=== PATIENT | male | born 1955 | race Caucasian/White ===

== ENCOUNTER 2019-11-17 13:01 | Observation (INO) | payer OTHER ==
--- OUTSIDE RECORDS SUMMARY | 2019-11-17 13:19 | XMS REPORT | Continuity of Care Document ---
:1955 Author Organization [facility] t Address [address] [place] [address] Care Team Providers Name Role Phone Unavailable Unavailable Unavailable Payers Payer Name Policy Type Policy Number Effective Date Expiration Date S ource Problems This patient has no known problems. Allergies, Adverse Reactions, Alerts Allergy Allergy Status Severity Reaction(s) Onset Inactive Treating Comm ents Source Name Type Date Date Clinician No Known DA Active U [facility] All[facility]ie 09-18 Landing s 00:00: [place] [address] [place] [address] Medications This patient has no known medications. Procedures This patient has no known procedures. Results Test Description Test Time Test Comments Results Result Comments Source - XR CHEST 1 V 2019-10-20 FAX: Varun 15:38:00 Brenda Mosqueda MD [phone] [place]: St: REG FAX: Jorge Lara [phone] Name: DONAVON ROBINS [facility] : 1955 Age/S: 63/M [address] [place] [address] Unit #: [id number] Loc: [place] [address] Phys: Mike Martinez MD Acct: [id number] Dis Date: Status: REG REF PHONE #: [phone] Exam Date: 10/20/2019 1504 FAX #: [phone] Reason: PORT A CATH PM EXAMS: CPT CODE: [id number] XR CHEST 1 V 30514 EXAM: XR CHEST 1 VIEW DATE: 10/20/2019 3:04 PM : 1955; Age: 63 years y/o Male INDICATION: PORT A CATH PM COMPARISON: None. TECHNIQUE: AP chest. IMPRESSION: Lines, tubes and hardware: Left subclavian chest port is seen with tip overlying the mid SVC. Heart, mediastinum and lungs: The heart size is normal for technique. The mediastinal contours are normal. Pulmonary vascularity is normal. The lungs are clear. SL: [id number] at 153 Reported and signed by: Tonja Greenwood D.O. CC: Brenda Mosqueda MD; Mike Martinez MD Technologist: RT Barbara(R) Trnscrd Date/Time/By: 10/20/2019 (9466) : By: [email or web address] Orig Print D/T: S: 10/20/2019 (9841) PAGE 1 Signed Report CREATININE W ESTIMATED GFR 2019-09-20 07:40:00 Test Item Value Reference Range Interpretation Comme nts BEDSIDE CREATININE (test code = CREATBED) 1.5 MG/DL 0.6-1.3 H GLOMERULAR FILTRATION RATE POC (test code = GFRBED) 51 ML/MIN ENTER BEDSIDE CREATININE RESULT: 1.53Serial Number: [id number] Name of User Performing Test: PAIGE- CT ABD PELVIS [id number] 11:12:00 Name: SUHASVenturaDONAVON [facility] : 1955 Age/S: 63 / M [address] [place] [address] Unit #: [id number] Loc: [place] [id number] Phys: Mike Martinez MD Acct: [id number] Dis Date: Status: REG CLI PHONE #: [phone] Exam Date: 09/19/2019 0808 FAX #: [phone] Reason: LOCALIZED SWELLING,MASS AND LUMP,UNSPE EXAMS: CPTCODE: [id number] CT ABD PELVIS W/CONT 32298 Clinical Ind ication: . LOCALIZED SWELLING,MASS AND LUMP,UNSPE. Rectal pain and swelling, DATE: 09/19/2019 7:10 AM : 1955; Age: 63 years y/o Male Comparison: None Technique: Multi-detector CT imaging of the chest, abdomen and pelvis is performed with intravenous contrast. Axial, coronal and sagittal reconstructions were obtained. IV Contrast: 100 mL Isovue Enteric Contrast: [address] Radiation Dose: DLP 329.9 mGy-cmCT imaging performed at this location utilizes radiation dose optimization techniques which include one or more of the following: -Automated exposure control -Adjustment of the mA and/or kV according to patient size -Use of iterative reconstruction technique FINDINGS: Lymph Nodes: There is no mediastinal or hilar lymphadenopathy. No axillary lymphadenopathy. Heart, pericardium and aorta: : The heart is normal in size. There are coronary artery calcifications. Ectatic ascending thoracic aorta measuring 3.8 cm Atheromatous changes are present in the aorta.. LUNGS: 8 mm ill- defined noncalcified nodule in the right upper lobe on image 23 of series 3. Moderate pulmonary emphysema. Few noncalcified nodular opacity in the left lung base measuring up to 6 mm. No consolidation. No pleural effusion. Liver: Normal. Gallbladder: No calcified stones or wall thickening. Adrenals: Normal. Kidneys and ureters: Tiny right kidney lower pole low-attenuation focus, which is too small to accurately characterize. Exophytic left kidney upper pole 2.3 cm low-attenuation lesion. 2 mm nonobstructing right kidney lower pole stone. PAGE 1 Signed Report (CONTINUED) Name: DONAVON ROBINS [facility] : 1955 Age/S: 63 / M [address] [place] [address] Unit #: [id number] Loc: [place] [address] Phys: Mike Martinez MD Acct: [id number] Dis Date: Status: REG CLI PHONE #: [phone] Exam Date: 09/19/2019 0808 FAX #: [phone] Reason: LOCALIZED SWELLING,MASS AND LUMP,UNSPE EXAMS: CPT CODE: [id number] CT ABD PELVIS W/CONT 45192 <Continued> Spleen: Normal. Pancreas: Normal. Visualized Gastrointestinal tract: Stomach is grossly normal. No bowel obstruction. Prior appendectomy. Left anal region ill-defined soft tissue density lesion is seen measuring 2.8 x 4 x 4 cm with adjacent skin thickening. Peritoneum, mesentery and retroperitoneum: Moderate atherosclerotic changes involving the abdominal aorta. Infrarenal ectatic abdominal aorta is seen measuring2.9 cm. No lymphadenopathy. No ascites. Reproductive organs: Prostate and seminal vesicles are unremarkable. Bladder: Decompressed or not fully distended. Soft tissues: Left groin few nodes are seen measuring up to 1.4 cm. Bones: Subacute fracture involving left anterolateral 4th and 5th ribs. Spine degenerative changes. 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 Left anal region ill-defined soft tissue density lesion measuring 2.8 x 4 x 4 cmwith adjacent skin thickening. Left groin lymphadenopathy is seen. Malignancy cannot be excluded. 2. Indeterminate exophytic left kidney upper pole 2.3 cm low-attenuation lesion. This may represent complex or complicated cyst. Renal ultrasound is recommended for further workup. 3. 8 mm ill-defined noncalcified nodule in the right upper lobe. As per guidelines, further workup is recommended. Consider follow-up CT at 3 months, PET/CT or tissue sampling. 4. Few noncalcified nodular opacity in the left lung base measuring up to 6 cm. This may represent inflammatory process. 5. Ectatic aorta with coronary artery disease. 6. Right nephrolithiasis. 7. Moderate pulmonary emphysema. Reference: Guidelines for Management of Incidental Pulmonary PAGE 2 Signed Report (CONTINUED) Name: DONAVON ROBINS [facility] : 1955 Age/S: 63 / M [address] [place] [address] Unit #: [id number] Loc: [place] [address] Phys: Mike Martinez MD Acct: [id number] Dis Date: Status: REG CLI PHONE #: [phone] Exam Date: FAX #: [phone] Reason: LOCALIZED SWELLING,MASS AND LUMP,UNSPE EXAMS: CPT CODE: [id number] CT ABD PELVISW/CONT 68193 <Continued> Nodules Detected on CT Im ages: From the [employer] 2017. FOR INTERNAL CODING PURPOSES ONLY RESULT CODE: NOD SL: [id number] at 1112 Reported and signed by: Tonja Greenwood D.O. CC: Brenda Mosqueda MD; Mike Martinez MD Technologist:Madai Ramírez, RT(R)(CT) CTDI: DLP: Trnscb Date/Time: 09/19/2019 (111) [email or web address] Orig Print D/T: S: 09/19/2019 (1116) PAGE 3 Signed Report- CT CHEST W/[id number] 11:12:00 Name: DONAVON ROBINS [facility] : 1955 Age/S: 63 / M [address] [place] [address] Unit #: [id number] Loc: [id number] Phys: Mike Martinez MD Acct: [id number] Dis Date: Status: REG CLI PHONE #: [phone] Exam Date: 09/19/2019 0808 FAX #: [phone] Reason: LOCALIZED SWELLING,MASS AND LUMP,UNSPE EXAMS: CPTCODE: [id number] CT CHEST W/CONTRAST 81165 Clinical Ind ication: . LOCALIZED SWELLING,MASS AND LUMP,UNSPE. Rectal pain and swelling, DATE: 09/19/2019 7:10 AM : 1955; Age: 63 years y/o Male Comparison: None Technique: Multi-detector CT imaging of the chest, abdomen and pelvis is performed with intravenous contrast. Axial, coronal and sagittal reconstructions were obtained. IV Contrast: 100 mL Isovue Enteric Contrast: [address] Radiation Dose: DLP 329.9 mGy-cmCT imaging performed at this location utilizes radiation dose optimization techniques which include one or more of the following: -Automated exposure control -Adjustment of the mA and/or kV according to patient size -Use of iterative reconstruction technique FINDINGS: Lymph Nodes: There is no mediastinal or hilar lymphadenopathy. No axillary lymphadenopathy. Heart, pericardium and aorta: : The heart is normal in size. There are coronary artery calcifications. Ectatic ascending thoracic aorta measuring 3.8 cm Atheromatous changes are present in the aorta.. LUNGS: 8 mm ill- defined noncalcified nodule in the right upper lobe on image 23 of series 3. Moderate pulmonary emphysema. Few noncalcified nodular opacity in the left lung base measuring up to 6 mm. No consolidation. No pleural effusion. Liver: Normal. Gallbladder: No calcified stones or wall thickening. Adrenals: Normal. Kidneys and ureters: Tiny right kidney lower pole low-attenuation focus, which is too small to accurately characterize. Exophytic left kidney upper pole 2.3 cm low-attenuation lesion. 2 mm nonobstructing right kidney lower pole stone. PAGE 1 Signed Report (CONTINUED) Name: DONAVON ROBINS [facility] : 1955 Age/S: 63 / M [address] [place] [address] Blvd Unit #: [id number] Loc: [place] [address] Phys: Mike Martinez MD Acct: [id number] Dis Date: Status: REG CLI PHONE #: [phone] Exam Date: 09/19/2019 0808 FAX #: [phone] Reason: LOCALIZED SWELLING,MASS AND LUMP,UNSPE EXAMS: CPT CODE: [id number] CT CHEST W/CONTRAST 26468 <Continued> Spleen: Normal. Pancreas: Normal. Visualized Gastrointestinal tract: Stomach is grossly normal. No bowel obstruction. Prior appendectomy. Left anal region ill-defined soft tissue density lesion is seen measuring 2.8 x 4 x 4 cm with adjacent skin thickening. Peritoneum, mesentery and retroperitoneum: Moderate atherosclerotic changes involving the abdominal aorta. Infrarenal ectatic abdominal aorta is seen measuring2.9 cm. No lymphadenopathy. No ascites. Reproductive organs: Prostate and seminal vesicles are unremarkable. Bladder: Decompressed or not fully distended. Soft tissues: Left groin few nodes are seen measuring up to 1.4 cm. Bones: Subacute fracture involving left anterolateral 4th and 5th ribs. Spine degenerative changes. 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 Left anal region ill-defined soft tissue density lesion measuring 2.8 x 4 x 4 cmwith adjacent skin thickening. Left groin lymphadenopathy is seen. Malignancy cannot be excluded. 2. Indeterminate exophytic left kidney upper pole 2.3 cm low-attenuation lesion. This may represent complex or complicated cyst. Renal ultrasound is recommended for further workup. 3. 8 mm ill-defined noncalcified nodule in the right upper lobe. As per guidelines, further workup is recommended. Consider follow-up CT at 3 months, PET/CT or tissue sampling. 4. Few noncalcified nodular opacity in the left lung base measuring up to 6 cm. This may represent inflammatory process. 5. Ectatic aorta with coronary artery disease. 6. Right nephrolithiasis. 7. Moderate pulmonary emphysema. 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 CC: Brenda Mosqueda MD; Mike Martinez MD Technologist:Madai Krnavek, RT(R)(CT) CTDI: DLP: Trnscb Date/Time: 09/19/2019 (7520) [email or web address] Orig Print D/T: S: 09/19/2019 (8905) PAGE 3 Signed Report
[2019-11-17] MEDS ORDERED: ONDANSETRON 4 MG/2 ML VIAL ONE (13:23)
[2019-11-17] MEDS ORDERED: MORPHINE 4 MG/ML SYR ONE (13:23)
[2019-11-17] MEDS ORDERED: LIDOCAINE 1% 20 ML MDV ONE (13:30)
[2019-11-17] MEDS ORDERED: MIDAZOLAM HCL 2 MG/2 ML INJ ONE ×2 (13:30→14:17)
[2019-11-17] MEDS ORDERED: HEPA 1000U/500MLS 1,000 UNIT/500 ML BAG IV ONE (13:30)
[2019-11-17] MEDS ORDERED: FENTANYL CITR 100 MCG/2 ML ONE (13:31)
[2019-11-17] MEDS ORDERED: ATROPINE SULF 1 MG/10 ML SYR IV ONE ×2 (13:31→14:32)
[2019-11-17] MEDS ORDERED: NA CHLORIDE 0.9% 50 ML ONE (13:31)
[2019-11-17] MEDS ORDERED: NA CHLORIDE 0.9% 500 ML ONE (13:31)
[2019-11-17 13:37] LABS: Absolute Lymphocytes (CBC) 0.9 K/uL (0.7-4.9); Basophils % 0.9 % (0-1.3); Hematocrit 31.5 % (39.6-49.0); Lymphocytes % 12.6 % (15.3-44.8); MPV 7.5 fL (7.6-11.3); RBC Red Blood Cell Count 3.41 M/uL (4.33-5.43)
[2019-11-17 13:38] LABS: Protime INR 1.07
[2019-11-17 13:56] LABS: ALT/SGPT 16 U/L (12-78); AST/SGOT 15 U/L (15-37); Albumin 3.3 g/dL (3.4-5.0); Alkaline Phosphatase 51 U/L (45-117); BUN Blood Urea Nitrogen 13 mg/dL (7-18); Bicarbonate 26 mmol/L (21-32); Bilirubin Direct < 0.1 mg/dL (0-0.2); Bilirubin Total 0.2 mg/dL (0.2-1.0); Glucose Level 146 mg/dL (74-106); Magnesium 2.2 mg/dL (1.8-2.4); NT PRO-BNP 890 pg/mL (<125); Potassium 3.6 mmol/L (3.5-5.1); Protein, Total 7.2 g/dL (6.4-8.2); Sodium Level 142 mmol/L (136-145); Troponin (Emerg Dept Use Only) 0.12 ng/mL (0.0-0.045)
--- NOTE | 2019-11-17 13:59 | P.HP ---
Certification for Inpatient Patient admitted to: Inpatient With expected LOS: >2 Midnights Patient will require the following post-hospital care: None Practitioner: I am a practitioner with admitting privileges, knowledge of patient current condition, hospital course, and medical plan of care. Services: Services provided to patient in accordance with Admission requirements found in Title 42 Section 412.3 of the Code of Federal Regulations Patient History Date of Service: 11/17/19 Reason for admission: ST-elevation myocardial infarction History of Present Illness: 64-year-old male with history of HIV, hypertension, hyperlipidemia, stage IV colorectal cancer presents emergency department with severe chest pain that began after receiving radiation treatment. Patient is on chemo and radiation last chemo was approximately 2 weeks ago. Last radiation was today. Patient reports severe substernal chest pain. Upon arrival to the emergency department patient received EKG which showed ST elevation in leads 2, 3 and AV L with reciprocal changes. Cardiology was immediately called and patient was prepped for heart catheterization. Patient early on his way to cardiac cath lab manager. Called to discuss plan of care. Will re-evaluate patient after heart catheterization. - Past Medical/Surgical History -: Hypertension -: Hyperlipidemia -: Stage IV colorectal cancer -: HIV -: Appendectomy -: Tonsillectomy Psychosocial/ Personal History: Patient lives at home with his - Family History Family History: Reviewed- Non-Contributory - Social History Smoking Status: Current every day smoker Smoking therapy provided: Yes Alcohol use: No CD- Drugs: No Caffeine use: No Place of Residence: Home Review of Systems 10-point ROS is otherwise unremarkable Cardiovascular: Chest Pain Physical Examination - Physical Exam General: Alert, In no apparent distress, Oriented x3 HEENT: Atraumatic, Normocephalic, Mucous membr. moist/pink Neck: Supple Respiratory: Clear to auscultation bilaterally, Normal air movement Cardiovascular: No edema, Regular rate/rhythm Capillary refill: <2 Seconds Gastrointestinal: Normal bowel sounds, Soft and benign Musculoskeletal: No erythema, No tenderness Integumentary: No tenderness/swelling, No erythema Neurological: Normal gait, Normal speech, Normal affect - Studies Laboratory Data (last 24 hrs) 11/17/19 13:12: PT 12.6 H, INR 1.07 11/17/19 13:12: WBC 7.1, Hgb 10.7 L, Hct 31.5 L, Plt Count 534 H Assessment and Plan - Plan Assessment ST-elevation myocardial infarction-suspect inferior Hypertension Hyperlipidemia HIV Stage IV colorectal cancer Plan ST-elevation myocardial infarction-suspect inferior: Patient currently in cardiac cath lab manager, where recommendations from cardiology. Anticipate patient will be placed on Plavix, aspirin, statin, beta-ritesh. Will evaluate patient's home medications when he returns from catheterization lab. Discussed with the extensively. Will await recommendations from cardiology on use of DVT prophylaxis/Lovenox. Hypertension: Obtain and continue patient's home medications, place p.r.n. medications as needed. Hyperlipidemia: Obtain and continue patient's home medications. HIV: Obtain and continue patient's home medications. Patient has had HIV since 1998. This remained stable. Stage IV colorectal cancer: Patient sees multiple specialists including onc ologist and radiologist in [facility]. Will collaborate with them as needed. Patient is currently getting daily radiation treatment. Chemotherapy was held due to patient's low white blood cell count. Patient's white blood cell currently is 7.1. Platelets also were low but now are improved. Will continue to monitor patient's blood counts closely. Await further recommendations from cardiology to determine further plan of care. Discharge Plan: Home - Advance Directives Does patient have a Living Will: No Does patient have a Durable POA for Healthcare: No - Code Status/Comfort Care Code Status Assessed: Yes Critical Care: No Time Spent Managing Pts Care (In Minutes): 55
[2019-11-17] MEDS ORDERED: D5W 250 ML IV ONE (14:07)
[2019-11-17] MEDS ORDERED: NITROPRUSSIDE 50 MG VIAL IV ONE (14:07)
[2019-11-17] MEDS ORDERED: NITROGLYCERIN 0.4 MG/TAB SL ONE (14:07)
--- NOTE | 2019-11-17 14:36 | EDPHYS ---
Physician Documentation [facility] Name: Carlos Viera Jr Age: 64 yrs Sex: Male : 1955 Arrival Date: 11/17/2019 Time: 13:08 Bed 7 Private MD: ED Physician Joe White HPI: 11/16 14:23 This 64 yrs old Male presents to ER via EMS with complaints of Chest Pain. kdr 14:23 The patient or guardian reports chest pain that is located primarily in the substernal kdr area, anterior chest wall, left. Onset: suddenly, just prior to arrival, at 12:00. The pain does not radiate. Associated signs and symptoms: Pertinent positives: diaphoresis, nausea, shortness of breath. The chest pain is described as aching, a heaviness, a pressure, squeezing. Duration: The patient or guardian reports a single episode, that is still ongoing, and unchanged. Modifying factors: The symptoms are alleviated by nothing. the symptoms are aggravated by nothing. Severity of pain: At its worst the pain was moderate severe a 9 / 10 in the emergency department the pain is a 8 / 10. The patient has not experienced similar symptoms in the past. The patient has not recently seen a physician. The patient had radiation this morning and went home to rest. Shortly after arrival home at Noon, he began to have chest pain. Historical: - Allergies: 13:11 PENICILLINS; hb - PMHx: 13:11 Colorectal CA; HIV; hb - Immunization history:: Adult Immunizations up to date. - Social history:: Smoking status: Patient reports the use of cigarette tobacco products, smokes one pack cigarettes per day. ROS: 14:23 Constitutional: Negative for fever, chills, and weight loss, Eyes: Negative for injury, kdr pain, redness, and discharge, ENT: Negative for injury, pain, and discharge, Neck: Negative for injury, pain, and swelling, Respiratory: Negative for shortness of breath, cough, wheezing, and pleuritic chest pain, Abdomen/GI: Negative for abdominal pain, nausea, vomiting, diarrhea, and constipation, Back: Negative for injury and pain, : Negative for injury, bleeding, discharge, and swelling, MS/Extremity: Negative for injury and deformity, Skin: Negative for injury, rash, and discoloration, Neuro: Negative for headache, weakness, numbness, tingling, and seizure activity. Psych: Negative for depression, anxiety, suicide ideation, homicidal ideation, and hallucinations, Allergy/Immunology: Negative for hives, rash, and allergies, Endocrine: Negative for neck swelling, polydipsia, polyuria, polyphagia, and marked weight changes, Hematologic/Lymphatic: Negative for swollen nodes, abnormal bleeding, and unusual bruising. 14:23 Cardiovascular: Positive for chest pain, Negative for edema, orthopnea, palpitations, paroxysmal nocturnal dyspnea. 14:23 Respiratory: Positive for shortness of breath, at rest. 14:23 Skin: Positive for diaphoresis. Exam: 14:23 Constitutional: This is a well developed, well nourished patient who is awake, alert, kdr and in no acute distress. Head/Face: Normocephalic, atraumatic. Eyes: Pupils equal round and reactive to light, extra-ocular motions intact. Lids and lashes normal. Conjunctiva and sclera are non-icteric and not injected. Cornea within normal limits. Periorbital areas with no swelling, redness, or edema. Neck: Trachea midline, no thyromegaly or masses palpated, and no cervical lymphadenopathy. Supple, full range of motion without nuchal rigidity, or vertebral point tenderness. No Meningismus. Chest/axilla: Normal chest wall appearance and motion. Nontender with no deformity. No lesions are appreciated. Cardiovascular: Regular rate and rhythm with a normal S1 and S2. No gallops, murmurs, or rubs. Normal PMI, no JVD. No pulse deficits. Respiratory: Lungs have equal breath sounds bilaterally, clear to auscultation and percussion. No rales, rhonchi or wheezes noted. No increased work of breathing, no retractions or nasal flaring. Abdomen/GI: Soft, non-tender, with normal bowel sounds. No distension or tympany. No guarding or rebound. No evidence of tenderness throughout. Back: No spinal tenderness. No costovertebral tenderness. Full range of motion. Skin: Warm, dry with normal turgor. Normal color with no rashes, no lesions, and no evidence of cellulitis. MS/ Extremity: Pulses equal, no cyanosis. Neurovascular intact. Full, normal range of motion. Neuro: Awake and alert, GCS 15, oriented to person, place, time, and situation. Cranial nerves II-XII grossly intact. Motor strength 5/5 in all extremities. Sensory grossly intact. Cerebellar exam normal. Normal gait. Psych: Awake, alert, with orientation to person, place and time. Behavior, mood, and affect are within normal limits. 18:43 ECG was reviewed by the Attending Physician. kdr Vital Signs: 13:08 Pulse 72; Resp 18; Temp 97.9; Pulse Ox 100% on R/A; Pain 8/10; hb 13:14 BP 137 / 79; Pulse 71; Resp 12; Temp 97.7; Pulse Ox 100% on R/A; Weight 64.41 kg; dh3 Height 5 ft. 7 in. (170.18 cm); Pain 8/10; 16:15 BP 100 / 60; Pulse 61; Resp 15; Pulse Ox 100% on R/A; hb 13:14 Body Mass Index 22.24 (64.41 kg, 170.18 cm) dh3 MDM: 14:23 Data reviewed: vital signs, nurses notes, lab test result(s), EKG, radiologic studies. kdr Counseling: I had a detailed discussion with the patient and/or guardian regarding: the historical points, exam findings, and any diagnostic results supporting the discharge/admit diagnosis, lab results, the need for further work-up and treatment in the hospital. 14:35 Patient medically screened. kdr 11/16 13:17 Order name: Basic Metabolic Panel hb 11/16 13:17 Order name: CBC with Diff hb 11/16 13:17 Order name: LFT's hb 11/16 13:17 Order name: Magnesium hb 11/16 13:17 Order name: NT PRO-BNP hb 11/16 13:17 Order name: PT-INR hb 11/16 13:17 Order name: Troponin (emerg Dept Use Only) hb 11/16 13:38 Order name: CBC with Automated Diff EDMS 11/16 13:39 Order name: Protime (+INR); Complete Time: 13:54 EDMS 11/16 13:56 Order name: Basic Metabolic Panel EDMS 11/16 13:56 Order name: Liver (Hepatic) Function EDMS 11/16 13:56 Order name: Troponin (Emerg Dept Use Only) EDMS 11/16 13:56 Order name: NT PRO-BNP EDMS 11/16 13:56 Order name: Magnesium EDMA 11/16 13:17 Order name: XRAY Chest (1 view) hb 11/16 13:17 Order name: EKG; Complete Time: 13:18 hb 11/16 13:17 Order name: Cardiac monitoring; Complete Time: 13:19 hb 11/16 13:17 Order name: EKG - Nurse/Tech; Complete Time: 13:19 hb 11/16 13:17 Order name: IV Saline Lock; Complete Time: 13:19 hb 11/16 13:17 Order name: Labs collected and sent; Complete Time: 13:21 hb 11/16 16:52 Order name: Activated Clotting Time-LR EDMA 11/16 16:52 Order name: Activated Clotting Time-LR EDMA 11/16 17:58 Order name: CBC with Automated Diff EDMA 11/16 18:12 Order name: Creatine Phosphokinase EDMA 11/16 18:12 Order name: CKMB Creatine Kinase MB EDMA 11/16 18:12 Order name: Troponin I EDMA 11/16 18:12 Order name: T4 Free EDMA 11/16 18:12 Order name: Thyroid Stimulating Hormone EDMA 11/16 13:17 Order name: O2 Per Protocol; Complete Time: 13:22 hb 11/16 13:17 Order name: O2 Sat Monitoring; Complete Time: 13:22 hb EC:43 Rate is 70 beats/min. Rhythm is regular, Sinus Rhythm with No ectopy. QRS [place] is kdr Normal. [place] interval is normal. Clinical impression: Acute [place]. Administered Medications: 13:17 Drug: morphine 4 mg Route: IVP; Site: right antecubital; hb 13:48 Follow up: Response: No adverse reaction hb 13:18 Drug: Zofran (Ondansetron) 4 mg Route: IVP; Site: right antecubital; hb 13:48 Follow up: Response: No adverse reaction hb Disposition: 11/17/19 14:35 Hospitalization ordered by Prince Nita for Inpatient Admission. Preliminary diagnosis is Acute [place]. - Bed requested for [facility] ER HOLD. - Status is Inpatient Admission. ea - Condition is Serious. - Problem is new. - Symptoms have improved. Signatures: Dispatcher [employer] EDMA Joe White MD MD kdr Williams, Irene, RN RN iw Attema, Lee, FNP-C FNP-Cla1 Radha Rich, RN RN hb Nancy Leone RN RN Irma Amezcua Corrections: (The following items were deleted from the chart) 14:37 14:35 Hospitalization Ordered by Prince Nita READ for Inpatient Admission. Preliminary iw diagnosis is Acute [place]. Bed requested for Curing Oven Tender. Status is Inpatient Admission. Condition is Serious. Problem is new. Symptoms have improved. kdr 16:02 14:37 11/17/2019 14:35 Hospitalization Ordered by Prince Nita READ for Inpatient eb Admission. Preliminary diagnosis is Acute [place]. Bed requested for C[facility] Oven Tender. Status is Inpatient Admission. Condition is Serious. Problem is new. Symptoms have improved. iw 19:53 16:02 11/17/2019 14:35 Hospitalization Ordered by Prince Nita READ for Inpatient ea Admission. Preliminary diagnosis is Acute [place]. Bed requested for [facility] ER HOLD. Status is Inpatient Admission. Condition is Serious. Problem is new. Symptoms have improved. eb
--- NOTE | 2019-11-17 14:36 | ER ---
Nurse's Notes [facility] Name: Carlos Viera Jr Age: 64 yrs Sex: Male : 1955 Arrival Date: 11/17/2019 Time: 13:08 Bed 7 Private MD: Diagnosis: Acute [place] Presentation: 11/16 13:08 Chief complaint: EMS states: Sudden onset substernal chest pain while driving home from radiation therapy today. Nitro x 2, ASA 324mg, Fentanyl 50 mcg, and LR 200 ml administered MACHINE HEEL SEAT FITTER. 20g LAC. Coronavirus screen: At this time, the client does not indicate any symptoms associated with coronavirus-19. Ebola Screen: No symptoms or risks identified at this time. Initial Sepsis Screen: Does the patient meet any 2 criteria? No. Patient's initial sepsis screen is negative. Does the patient have a suspected source of infection? No. Patient's initial sepsis screen is negative. Risk Assessment: Do you want to hurt yourself or someone else? Patient reports no desire to harm self or others. Onset of symptoms was November 17, 2019. 13:08 Method Of Arrival: EMS: [facility] 13:08 Acuity: TRINITY 2 hb 13:17 Acuity: TRINITY 1 hb Triage Assessment: 13:10 General: Appears in no apparent distress. Behavior is calm, cooperative. Pain: Pain hb currently is 8 out of 10 on a pain scale. EENT: No signs and/or symptoms were reported regarding the EENT system. Neuro: Level of Consciousness is awake, alert, obeys commands, Oriented to person, place, time, situation. Cardiovascular: Patient's skin is warm and dry. Respiratory: Airway is patent Respiratory effort is even, unlabored, Respiratory pattern is regular, symmetrical. GI: No signs and/or symptoms were reported involving the gastrointestinal system. : No signs and/or symptoms were reported regarding the genitourinary system. Derm: Skin is pink, warm \T\ dry. Musculoskeletal: No signs and/or symptoms reported regarding the musculoskeletal system. Historical: - Allergies: 13:11 PENICILLINS; hb - PMHx: 13:11 Colorectal CA; HIV; hb - Immunization history:: Adult Immunizations up to date. - Social history:: Smoking status: Patient reports the use of cigarette tobacco products, smokes one pack cigarettes per day. Screenin:35 Abuse screen: Denies threats or abuse. Denies injuries from another. Nutritional hb screening: No deficits noted. Tuberculosis screening: No symptoms or risk factors identified. Fall Risk None identified. Assessment: 13:12 General: see triage assessment. hb 13:28 Reassessment: labor trainer team at bedside. hb 13:35 Reassessment: Pt to medical lab specialist with Rupinder HODGE. hb 16:11 Reassessment: Pt returned from medical lab specialist. General: Appears in no apparent distress. hb Behavior is calm, cooperative. Pain: Denies pain. Neuro: Level of Consciousness is awake, alert, obeys commands, Oriented to person, place, time, situation. Cardiovascular: Capillary refill < 3 seconds Patient's skin is warm and dry. Pulses are 3+ in right dorsalis pedis artery right groin cath entry site soft and without redness, dressing in place, dressing is dry and intact. Respiratory: Respiratory effort is even, unlabored, Respiratory pattern is regular, symmetrical. GI: No signs and/or symptoms were reported involving the gastrointestinal system. : No signs and/or symptoms were reported regarding the genitourinary system. EENT: No signs and/or symptoms were reported regarding the EENT system. Derm: Skin is pink, warm \T\ dry. Musculoskeletal: No signs and/or symptoms reported regarding the musculoskeletal system. Vital Signs: 13:08 Pulse 72; Resp 18; Temp 97.9; Pulse Ox 100% on R/A; Pain 8/10; hb 13:14 BP 137 / 79; Pulse 71; Resp 12; Temp 97.7; Pulse Ox 100% on R/A; Weight 64.41 kg; dh3 Height 5 ft. 7 in. (170.18 cm); Pain 8/10; 16:15 BP 100 / 60; Pulse 61; Resp 15; Pulse Ox 100% on R/A; hb 13:14 Body Mass Index 22.24 (64.41 kg, 170.18 cm) 3 ED Course: 13:08 Patient arrived in ED. iw 13:08 Radha Rich, RN is Primary Nurse. hb 13:08 EKG done, by ED staff, reviewed by Joe White MD. 3 13:10 Triage completed. hb 13:10 Patient maintains SpO2 saturation greater than 95% on room air. hb 13:11 Arm band placed on. hb 13:12 Inserted saline lock: 18 gauge in right antecubital area, using aseptic technique. dh3 Blood collected. 13:12 Maintain EMS IV. Dressing intact. Good blood return noted. Site clean \T\ dry. Gauge \T\ hb site: 20g LAC. 13:35 Patient has correct armband on for positive identification. Placed in gown. Bed in low hb position. Call light in reach. Side rails up X 1. 13:38 Dereck Denson NP is PHCP. pm1 13:38 Joe White MD is Attending Physician. pm1 13:41 No provider procedures requiring assistance completed. Patient admitted, IV remains in jl7 place. intact, No redness/swelling at site. 14:34 Prince Moya MD is Hospitalizing Provider. kdr Administered Medications: 13:17 Drug: morphine 4 mg Route: IVP; Site: right antecubital; hb 13:48 Follow up: Response: No adverse reaction hb 13:18 Drug: Zofran (Ondansetron) 4 mg Route: IVP; Site: right antecubital; hb 13:48 Follow up: Response: No adverse reaction hb Outcome: 13:30 Admitted to Chair Post Machine Operator accompanied by nurse, via stretcher, with chart, Other Beside hb report given to Rupinder HODGE 13:30 Condition: unchanged 13:30 Instructed on the need for admit, Demonstrated understanding of instructions. 14:35 Decision to Hospitalize by Provider. kdr 14:37 Patient left the ED. iw 16:28 Admitted to ER Hold. Please see [facility] for further documentation. hb 19:53 Patient left the ED. ea Signatures: Joe White MD MD kdr Goldie Angel RN RN Dereck Denson NP PROJECT STRUCTURAL ENGINEER pm1 Radha Rich RN RN Jelly Mcghee RN RN [facility] Mónica Cedeno [facility] Nancy Leone RN RN ea Corrections: (The following items were deleted from the chart) 13:19 13:14 BP 137 / 79; Pulse 71bpm; Resp 12bpm; Pulse Ox 100% RA; 3 3 13:22 13:22 EKG done, by ED staff, reviewed by Joe White MD [place] [id number] 15:52 15:40 Reassessment: Pt to medical lab specialist with Paxton RN hb hb
[2019-11-17] MEDS ORDERED: NA CHLORIDE 0.9% 1,000 ML ONE ×4 (14:39→23:48)
[2019-11-17] MEDS ORDERED: FLUMAZENIL 0.1 MG/ML (5 mL VIAL) IV ONE (14:52)
[2019-11-17 15:13] LABS: Blood Morphology Comment NOT SEEN (NOT SEEN); Platelet Estimate INCR
[2019-11-17] MEDS ORDERED: PRASUGREL (EFFIENT) 10 MG TAB ONE (15:14)
[2019-11-17] MEDS ORDERED: ACETAMINOPHEN 500 MG TAB PO PRN (16:45)
[2019-11-17] MEDS ORDERED: ONDANSETRON 4 MG/2 ML VIAL IV PRN (16:45)
[2019-11-17] MEDS: NA CHLORIDE 0.9% 1,000 ML IV SCH ×2 (16:45→23:52)
[2019-11-17 17:07] VITALS: BMI 21.2
[2019-11-17 17:43] LABS: Absolute Lymphocytes (CBC) 0.3 K/uL (0.7-4.9); Basophils % 0.4 % (0-1.3); Hematocrit 27.6 % (39.6-49.0); Lymphocytes % 4.8 % (15.3-44.8); RBC Red Blood Cell Count 2.99 M/uL (4.33-5.43)
[2019-11-17] MEDS ORDERED: NA CHLORIDE 0.9% 1,000 ML IV ONE (17:52)
[2019-11-17 18:09] LABS: Thyroid Stimulating Hormone 0.862 uIU/mL (0.360-3.740)
[2019-11-17 18:11] LABS: CKMB Creatine Kinase MB 34.6 ng/mL (0.3-3.6); Troponin I 9.91 ng/mL (0.0-0.045)
--- NOTE | 2019-11-17 19:08 | CON ---
Reason For Admission: The patient admitted today, 11/17/2019, to the emergency room with an acute in [place]. History Of Present Illness: The patient is a 64-year-old male with history of hypertension, dyslipid emia, colon cancer on chemotherapy, HIV positive, came in with chest pain while he was driving [place] receiving treatment for his colon cancer, came to the emergency room, was found to have 3-[address] -elevation in leads II, III, and F. The case was discussed rather emergently with Dr. White and we decided to bring the patient to the laboratory animal caretaker on an emergency basis. In the laboratory animal caretaker, the catheteriz ation showed complete occlusion of the right coronary artery at the ostium. He also had a 95% stenos is in the posterolateral. The patient underwent successful angioplasty and stent of the ostial RCA, successful stent of the posterolateral wall with 0% residual. The patient will be admitted to the [facility] for further observation and treatment. He will be on aspirin, Plavix, and Lipitor. Past Medical History: As stated above. Allergies: HE IS ALLERGIC TO PENICILLIN. Review of Systems: Negative. Social History: Negative. Family History: Noncontributory. Medications: At home are listed by primary care physician. Physical Examination: Vital Signs: Blood pressure 107/65, his heart rate was 66. HEENT: Negative. Neck: Supple with no bruit. The patient was in moderate to severe distress in the laboratory animal caretaker when he first came in, that resolved after the intervention. Neck is supple. Chest: Clear. Cardiac: Regular rhythm and rate. No murmurs, gallops, or rubs. Abdomen: Benign. Extremities: No clubbing, cyanosis, or edema. Diagnostic Data: EKG showed acute inferior [place]. Troponin was pending. Hemoglobin is 10.7, white cou nt is 7.1, platelet count is 534,000. INR is 1.07. Creatinine was normal. Chest x-ray is pending. Impression And Plan: This is a patient with history of hypertension, dyslipidemia, HIV positive, on chemotherapy for colon cancer with an acute inferior myocardial infarction, status post emergency int ervention with angioplasty and stent of the ostial right coronary artery, stent of the posterolateral . We will continue his present regimen. We will admit him to the hospital for at least an overnight observation. He will be on aspirin, Plavix, and Lipitor. He did receive Angiomax during the proced ure and Effient. I will discuss the case further with his primary care physician. IRIS Voice ID: [id number] Report ID: [id number]
[2019-11-17] MEDS: HYDROCODONE/APAP 10/325 TAB PO PRN (20:48)
[2019-11-17] MEDS ORDERED: ATORVASTATIN 20 MG TAB ONE (20:49)
[2019-11-17] MEDS: carisoprodoL 350 MG TAB PO PRN (20:49)
[2019-11-17] MEDS ORDERED: HYDROCODONE/APAP 10/325 TAB ONE (20:50)
[2019-11-17] MEDS ORDERED: HYDROCODONE/APAP 10/325 TAB PO SCH (21:00)
[2019-11-17] MEDS ORDERED: ATORVASTATIN 40 MG TAB PO SCH (21:00)
--- NOTE | 2019-11-18 01:02 | OP ---
Surgeon: Oracio Celeste MD Teacher Learning Disabled: Ehsan Sanders. Procedures: Emergency left heart catheterization, selective coronary arteriogram, primary stent of t he posterolateral branch, angioplasty and stent of the ostial RCA. Indication: Acute inferior [place]. Mr. Viera is a 64-year-old, presented to the emergency room with an acute inferior [place]. He has history of hypertension, dyslipidemia, HIV positivity, colon cancer, o n chemotherapy. He had 3-[address]-elevation in lead II, III, and F. Description Of Procedure: He was brought to the assistant laboratory director from the emergency room emergently. He was prepped and draped in the routine sterile fashion. Using the Seldinger technique, we put 10 cc of X ylocaine in the right common femoral artery area. A 6-Palauan sheath was introduced there without any complication. Angiography there revealed some ectatic vessels in the iliac area, but Angio-Seal was used to close the case. A JL4 catheter was used to cannulate the left main. His LAD, left main and circumflex were normal. An RCA catheter JR4 was introduced in the right coronary artery main inject ion and there showed complete occlusion from the ostium. A coronary intervention was planned. A JR4 6-Palauan with side-hole guide catheter was placed in the RCA ostium. Angiomax was given. The patie nt has received aspirin. Effient was given 60 mg. A [place] wire 0.014 exchange length was used to c ross the lesion successfully. Multiple dilatation was done with a 2.5 x 15 Emerge balloon that was c ompliant up to 6 atmosphere. After that was obvious, there was a small dissection and severe stenosi s in the ostium of the RCA. A 3.0 x 16 Synergy stent was deployed at 11 atmosphere with 0% residual. Once that was done, we noted there was a 95% mid posterolateral branch. The wire was still there. It was moved from the PDA to the posterolateral. Following that, a primary stent 2.25 x 16 Synergy at 11 atmosphere was deployed with excellent results. The patient did become hypotensive during the procedure and received fluid with normalization of his pressure. There may have been a question of h aziness ostially after the initial angioplasty and I did give him some 100 mcg of Nipride intracorona ry. There were no complications. Blood Loss: 5 mL. Anesthesia: Total conscious sedation was 60 minutes. Postoperative Diagnoses: The patient is status post acute inferior myocardial infarction, status pos t emergency angioplasty and stent of the ostial right coronary artery, status post emergency stent of the posterolateral branch of the right coronary artery. Plan: The plan for now is to keep him in the hospital, hydrate him. Continue aspirin, Plavix, and L ipitor. JESUS/NAVEEN Voice ID: [id number] Report ID: [id number]
[2019-11-18] MEDS ORDERED: NITROGLYCERIN 0.4 MG/TAB SL PRN (01:17)
[2019-11-18 02:10] LABS: CKMB Creatine Kinase MB 42.6 ng/mL (0.3-3.6)
[2019-11-18 05:18] VITALS: O2SAT 99
[2019-11-18] MEDS: NA CHLORIDE 0.9% 1,000 ML IV SCH (05:39)
[2019-11-18 05:49] LABS: Absolute Lymphocytes (CBC) 0.4 K/uL (0.7-4.9); Basophils % 0.4 % (0-1.3); Hematocrit 25.5 % (39.6-49.0); Lymphocytes % 6.3 % (15.3-44.8); MPV 7.3 fL (7.6-11.3); RBC Red Blood Cell Count 2.77 M/uL (4.33-5.43)
[2019-11-18 05:54] LABS: Magnesium 2.1 mg/dL (1.8-2.4); Potassium 3.8 mmol/L (3.5-5.1)
[2019-11-18] MEDS ORDERED: POTASSIUM CL SA 10 MEQ TAB PO ONE ×2 (06:21→07:00)
[2019-11-18] MEDS ORDERED: HYDROCODONE/APAP 10/325 TAB ONE (06:22)
[2019-11-18] MEDS: carisoprodoL 350 MG TAB PO PRN (06:24)
[2019-11-18] MEDS: HYDROCODONE/APAP 10/325 TAB PO PRN (06:24)
[2019-11-18] MEDS ORDERED: carisoprodoL 350 MG TAB PO ONE (06:30)
--- NOTE | 2019-11-18 07:19 | EKG ---
Test Date: 2019-11-17 Test Time: 13:06:09 Transliterator: RAINA MEASUREMENT RESULTS: Intervals: Rate: 70 AK: 174 QRSD: 84 QT: 416 QTc: 449 [place]: P: 73 AK: 174 QRS: 77 T: 98 INTERPRETIVE STATEMENTS: Normal sinus rhythm ST elevation, consider inferior injury or acute infarct ACUTE IA Consider right ventricular involvement in acute inferior infarct Abnormal ECG Compared to ECG 06/01/2006 14:41:47 ST (T wave) deviation now present Myocardial infarct finding now present Myocardial infarct finding now present First degree AV block no longer present Electronically Signed On 11-18-19 07:17:53 CDT by Oracio Celeste
--- NOTE | 2019-11-18 08:13 | P.DS ---
Admission Date: 11/17/19 Discharge Date: 11/18/19 Reason for Admission: ST-elevation myocardial infarction Consultations: Cardiology: Dr. Celeste Procedures: Medical problem list ST-elevation myocardial infarction Stage IV colorectal cancer HIV Hypertension Hyperlipidemia Heart catheterization The patient underwent successful angioplasty and stent of the ostial RCA, successful stent of the posterolateral wall with 0% residual. Brief History of Present Illness: 64-year-old male with history of HIV, hypertension, hyperlipidemia, stage IV colorectal cancer presents emergency department with severe chest pain that began after receiving radiation treatment. Patient is on chemo and radiation last chemo was approximately 2 weeks ago. Last radiation was today. Patient reports severe substernal chest pain. Upon arrival to the emergency department patient received EKG which showed ST elevation in leads 2, 3 and AV L with reciprocal changes. Cardiology was immediately called and patient was prepped for heart catheterization. Patient early on his way to medical lab director. Called to discuss plan of care. Will re-evaluate patient after heart catheterization. Hospital Course: 64-year-old male with history of stage IV colorectal cancer on chemo and radiation therapy, HIV, hypertension, hyperlipidemia presented emergency department after receiving treatment for his colorectal cancer when he began having severe chest pain. Upon arrival to the emergency department patient EKG that showed 3-[address] elevation in leads 2, 3, aVF. Patient was taken for emergency heart catheterization. Patient had successful angioplasty and stent placement of the ostial RCA and posterior lateral wall with 0% residual. Patient was admitted to the ICU for monitoring overnight after the procedure. During the initial postoperative. Patient was with some hypotension and bradycardia but this quickly resolved with fluid resuscitation. Patient has done well overnight, is not having any more chest pain. Patient with no arrhythmias on telemetry. Labs are unremarkable. Cardiology is comfortable with patient being discharged this morning to follow up on outpatient basis. Patient need to follow up with cardiology within 1-2 weeks. Patient go home with new prescription for Plavix 75 mg p.o. once daily and baby aspirin daily. Patient to continue seeing his oncologist for further treatment for his colorectal cancer. Patient labs include white blood cell count platelets are within normal limits during this visit. Patient is [employer] at home for cholesterol, recommend patient continue this medication at this time, can be further addressed by Cardiology on an outpatient basis with possible change to statin medication. This was discussed with cardiology. Vital Signs/Physical Exam: Temp Pulse Resp BP Pulse Ox 98.9 F 74 15 128/61 98 11/18/19 04:00 11/18/19 06:00 11/18/19 06:00 11/18/19 06:00 11/18/19 06:00 General: Alert, In no apparent distress HEENT: Atraumatic, PERRLA, EOMI Neck: Supple, JVD not distended Respiratory: Clear to auscultation bilaterally, Normal air movement Cardiovascular: Regular rate/rhythm, Normal S1 S2 Gastrointestinal: Normal bowel sounds, No tenderness Musculoskeletal: No tenderness Integumentary: No rashes Neurological: Normal speech, Normal tone, Normal affect Lymphatics: No axilla or inguinal lymphadenopathy Laboratory Data at Discharge: WBC 6.7 K/uL (4.3-10.9) 11/18/19 04:55 Hgb 8.8 g/dL (13.6-17.9) L 11/18/19 04:55 Hct 25.5 % (39.6-49.0) L 11/18/19 04:55 Plt Count 410 K/uL (152-406) H 11/18/19 04:55 PT 12.6 SECONDS (9.5-12.5) H 11/17/19 13:12 INR 1.07 11/17/19 13:12 Sodium 145 mmol/L (136-145) 11/18/19 04:55 Potassium 3.8 mmol/L (3.5-5.1) 11/18/19 04:55 BUN 10 mg/dL (7-18) 11/18/19 04:55 Creatinine 0.87 mg/dL (0.55-1.3) 11/18/19 04:55 Glucose 89 mg/dL (74-106) 11/18/19 04:55 Magnesium 2.1 mg/dL (1.8-2.4) 11/18/19 04:55 Total Bilirubin 0.2 mg/dL (0.2-1.0) 11/17/19 13:12 AST 15 U/L (15-37) 11/17/19 13:12 ALT 16 U/L (12-78) 11/17/19 13:12 Alkaline Phosphatase 51 U/L (45-117) 11/17/19 13:12 Troponin I 28.00 ng/mL (0.0-0.045) H* 11/18/19 01:32 Triglycerides 146 mg/dL (<150) 11/18/19 04:55 Cholesterol 110 mg/dL (<200) 11/18/19 04:55 HDL Cholesterol 28 mg/dL (40-60) L 11/18/19 04:55 Cholesterol/HDL Ratio 3.93 11/18/19 04:55 Home Medications: Carisoprodol [Soma] 350 mg PO TID PRN 11/17/19 Emtricitab/Rilpiviri/Tenof Ala [Odefsey Tablet] 1 each PO DAILY 11/17/19 Fenofibrate [Tricor*] 145 mg PO DAILY 11/17/19 Hydrocodone Bit/Acetaminophen [Bent 10-325 Tablet] 1 tab PO TID PRN 11/17/19 Verapamil HCl [Verapamil ER] 240 mg PO BID 11/17/19 Aspirin [Aspirin EC 81 MG] 81 mg PO DAILY #30 tablet. 11/18/19 Clopidogrel Bisulfate [Plavix*] 75 mg PO DAILY #30 tablet 11/18/19 New Medications: Aspirin [Aspirin EC 81 MG] 81 mg PO DAILY #30 tablet. Clopidogrel Bisulfate [Plavix*] 75 mg PO DAILY #30 tablet Patient Discharge Instructions: 1. Please follow up with your primary care doctor, oncologist within 1-2 weeks to follow up this hospitalization. 2. Please follow up with cardiology in 1-2 weeks to follow up this hospitalization. 3. Please begin taking Plavix 75 mg p.o. once daily and aspirin 81 mg p.o. once daily. Please continue all of your other home medications. 4. 64-year-old male with history of stage IV colorectal cancer on chemo and radiation therapy, HIV, hypertension, hyperlipidemia presented emergency department after receiving treatment for his colorectal cancer when he began having severe chest pain. Upon arrival to the emergency department patient EKG that showed 3-[address] elevation in leads 2, 3, aVF. Patient was taken for emergency heart catheterization. Patient had successful angioplasty and stent placement of the ostial RCA and posterior lateral wall with 0% residual. Patient was admitted to the ICU for monitoring overnight after the procedure. During the initial postoperative. Patient was with some hypotension and bradycardia but this quickly resolved with fluid resuscitation. Patient has done well overnight, is not having any more chest pain. Patient with no arrhythmias on telemetry. Labs are unremarkable. Cardiology is comfortable with patient being discharged this morning to follow up on outpatient basis. Patient need to follow up with cardiology within 1-2 weeks. Patient go home with new prescription for Plavix 75 mg p.o. once daily and baby aspirin daily. Patient to continue seeing his oncologist for further treatment for his colorectal cancer. Patient labs include white blood cell count platelets are within normal limits during this visit. Patient is [employer] at home for cholesterol, recommend patient continue this medication at this time, can be further addressed by Cardiology on an outpatient basis with possible change to statin medication. This was discussed with cardiology. Diet: AHA Activity: Ad ruddy Followup: Oracio Celeste MD [ACTIVE - CAN ADMIT] - Time spent managing pt's care (in minutes): 55
[2019-11-18] MEDS ORDERED: ENOXAPARIN 40 MG/0.4 ML SQ SCH (09:00)
[2019-11-18] MEDS ORDERED: CLOPIDOGREL 75 MG TABLET PO SCH (09:00)
[2019-11-18] MEDS ORDERED: ASPIRIN EC 81 MG TAB PO SCH (09:00)
[2019-11-18] MEDS ORDERED: ASPIRIN EC 81 MG TAB PO ONE (09:03)
[2019-11-18] MEDS ORDERED: CLOPIDOGREL 75 MG TABLET ONE (09:03)
[2019-11-18] MEDS ORDERED: ENOXAPARIN 40 MG/0.4 ML SQ ONE (09:03)
--- NOTE | 2019-11-18 09:33 | PN ---
Date of Progress Note: 11/18/2019 Subjective: Mr. Viera is asymptomatic this morning. He denied any chest pain, shortness of yuly th, or palpitation. Objective: Vital Signs: Stable. He is in sinus rhythm. HEENT: Negative. Neck: Supple with no bruit. Chest: Clear. Skin: The entry site of the catheterization in the right groin is intact without any hematoma. Extremities: Revealed good pulses and no edema. Impression: Mr. Viera came in yesterday with an acute inferior myocardial infarction, had an daniella rgency angioplasty and stent of the RCA ostium. He had a stent of his posterolateral branch of the R CA. He tolerated the procedure well. He initially was hypotensive secondary to his infarction and r eceived IV fluid extensively and today his pressure is adequate at 123/70. He is in sinus rhythm. H e is afebrile. He should be on aspirin. He should be on Lipitor. He should be on Plavix. I would avoid beta blockade right now and nitroglycerin because of his recent hypotension and bradycardia. I think he will do well from a cardiac standpoint. He can certainly go home whenever it is okay with admitting physician. Mr. Viera have other issues that he is dealing with including hypertension, dyslipidemia, that are stable. He has colon cancer on chemotherapy. He is HIV positive. IRIS Voice ID: [id number] Report ID: [id number]
[2019-11-18 10:04] LABS: CKMB Creatine Kinase MB 21.8 ng/mL (0.3-3.6); Troponin I 15.1 ng/mL (0.0-0.045)
[2019-11-18 11:17] VITALS: BP 115/60; TEMP 98.3
== END 2019-11-18 11:35 | disposition home or self-care (01) ==
LOC: ER 13:01 → INTOOBSV 13:39 → ERHOLD 13:39
PROVIDERS: ADMIT Internal Medicine; ATTEND Internal Medicine
DX: I21.19 ST elevation (STEMI) myocardial infarction involving other coronary artery of inferior wall (principal); I10 Essential (primary) hypertension; E78.5 Hyperlipidemia, unspecified; C18.9 Malignant neoplasm of colon, unspecified; I95.89 Other hypotension; R00.1 Bradycardia, unspecified; Z21 Asymptomatic human immunodeficiency virus [HIV] infection status; F17.210 Nicotine dependence, cigarettes, uncomplicated; Z79.899 Other long term (current) drug therapy; Z88.0 Allergy status to penicillin; Z11.59 Encounter for screening for other viral diseases
CPT/HCPCS: 93005; 85025 ×3; 80048 ×2; 36415 ×2; 83735 ×2; 82550 ×3; 85610; 80061; 80076; 85347 ×2; 84443; 84484 ×4; 82553 ×3; 84439; 83880; 93454; 96375; 96374; 99291; U0002; C1893; C1760; C1725; C9600; J1650; J2250 ×2; J3010; J0583; J7060; J7040; J7030 ×4; J1644; J2405; G0378 ×3